=== PATIENT | male | born 1935 | race Caucasian/White ===

== ENCOUNTER 2017-01-22 12:39 | Outpatient (CLI) | payer MEDICARE, OTHER ==
[2014-05-27 14:01] VITALS: BP 108/68
[2017-01-22 12:51] LABS: BASOPHILS % 0.5 (0.0-1.5); EOSINOPHILS % 1.5 % (0.0-6.8); MEAN CORPUSCULAR HEMOGLOBIN 26.6 pg (28.0-34.0); MEAN CORPUSCULAR VOLUME 88.5 fl (80.0-100.0); MONOCYTES % 5.4 % (0.0-11.0); NEUTROPHILS # 2.7 # k/uL (1.4-7.7)
[2017-01-22 13:12] LABS: eGFR (African) > 60; eGFR (Non-African) 52
== END 2017-01-22 12:40 ==
LOC: LAB 12:39
PROVIDERS: ATTEND Internal Medicine Hematology & Oncology
DX: D64.9 Anemia, unspecified (principal)
CPT/HCPCS: 80053; 85025

== ENCOUNTER 2017-01-27 11:54 | Outpatient (CLI) | payer MEDICARE, OTHER ==
[2014-05-27 14:01] VITALS: BP 108/68
[2017-01-27 12:25] LABS: BASOPHILS % 0.7 (0.0-1.5); EOSINOPHILS % 1.2 % (0.0-6.8); MEAN CORPUSCULAR HEMOGLOBIN 26.9 pg (28.0-34.0); MEAN CORPUSCULAR VOLUME 85.8 fl (80.0-100.0); MONOCYTES % 5.3 % (0.0-11.0); NEUTROPHILS # 2.6 # k/uL (1.4-7.7)
[2017-01-27 12:38] LABS: eGFR (African) > 60; eGFR (Non-African) 52
== END 2017-01-27 11:55 ==
LOC: LAB 11:54
PROVIDERS: ATTEND Internal Medicine Hematology & Oncology
DX: K92.2 Gastrointestinal hemorrhage, unspecified (principal); D50.9 Iron deficiency anemia, unspecified
CPT/HCPCS: 80053; 85025

== ENCOUNTER 2017-01-31 13:17 | Outpatient (CLI) | payer MEDICARE, OTHER ==
[2014-05-27 14:01] VITALS: BP 108/68
[2017-01-31 13:28] LABS: BASOPHILS % 1.2 (0.0-1.5); EOSINOPHILS % 0.7 % (0.0-6.8); MEAN CORPUSCULAR HEMOGLOBIN 27.4 pg (28.0-34.0); MEAN CORPUSCULAR VOLUME 85.3 fl (80.0-100.0); MONOCYTES % 6.7 % (0.0-11.0); NEUTROPHILS # 1.9 # k/uL (1.4-7.7)
[2017-01-31 13:45] LABS: eGFR (African) > 60; eGFR (Non-African) 52
== END 2017-01-31 13:18 ==
LOC: LAB 13:17
PROVIDERS: ATTEND Internal Medicine Hematology & Oncology
DX: K92.2 Gastrointestinal hemorrhage, unspecified (principal); D50.9 Iron deficiency anemia, unspecified
CPT/HCPCS: 80053; 85025

== ENCOUNTER 2017-02-04 13:35 | Outpatient (CLI) | payer MEDICARE, OTHER ==
[2014-05-27 14:01] VITALS: BP 108/68
[2017-02-04 13:45] LABS: BASOPHILS % 0.8 (0.0-1.5); EOSINOPHILS % 1.3 % (0.0-6.8); MEAN CORPUSCULAR HEMOGLOBIN 25.8 pg (28.0-34.0); MEAN CORPUSCULAR VOLUME 85.3 fl (80.0-100.0); MONOCYTES % 4.9 % (0.0-11.0)
[2017-02-04 14:01] LABS: eGFR (African) > 60; eGFR (Non-African) 52
== END 2017-02-04 13:36 ==
LOC: LAB 13:35
PROVIDERS: ATTEND Internal Medicine Hematology & Oncology
CPT/HCPCS: 80053; 85025

== ENCOUNTER 2017-02-07 15:37 | Outpatient (CLI) | payer MEDICARE, OTHER ==
[2014-05-27 14:01] VITALS: BP 108/68
[2017-02-07 15:48] LABS: BASOPHILS % 1.2 (0.0-1.5); EOSINOPHILS % 1.6 % (0.0-6.8); MEAN CORPUSCULAR HEMOGLOBIN 26.8 pg (28.0-34.0); MEAN CORPUSCULAR VOLUME 84.4 fl (80.0-100.0); MONOCYTES % 4.8 % (0.0-11.0); NEUTROPHILS # 3.2 # k/uL (1.4-7.7)
[2017-02-07 16:09] LABS: eGFR (African) 58; eGFR (Non-African) 48
== END 2017-02-07 15:40 ==
LOC: LAB 15:37
PROVIDERS: ATTEND Internal Medicine Hematology & Oncology
DX: D50.9 Iron deficiency anemia, unspecified (principal)
CPT/HCPCS: 80053; 85025

== ENCOUNTER 2017-02-18 14:56 | Outpatient (CLI) | payer MEDICARE, OTHER ==
[2014-05-27 14:01] VITALS: BP 108/68
[2017-02-18 15:16] LABS: BASOPHILS % 0.5 (0.0-1.5); EOSINOPHILS % 2.1 % (0.0-6.8); MEAN CORPUSCULAR HEMOGLOBIN 26.3 pg (28.0-34.0); MEAN CORPUSCULAR VOLUME 87.5 fl (80.0-100.0); MONOCYTES % 5.9 % (0.0-11.0)
== END 2017-02-18 14:57 ==
LOC: LAB 14:56
PROVIDERS: ATTEND Internal Medicine Hematology & Oncology
DX: D63.1 Anemia in chronic kidney disease (principal)
CPT/HCPCS: 36415; 85025

== ENCOUNTER 2017-03-04 13:54 | Outpatient (CLI) | payer MEDICARE, OTHER ==
[2014-05-27 14:01] VITALS: BP 108/68
[2017-03-04 14:07] LABS: BASOPHILS % 0.7 (0.0-1.5); EOSINOPHILS % 5.8 % (0.0-6.8); MEAN CORPUSCULAR HEMOGLOBIN 26.5 pg (28.0-34.0); MEAN CORPUSCULAR VOLUME 85.6 fl (80.0-100.0); MONOCYTES % 5.2 % (0.0-11.0); NEUTROPHILS # 2.2 # k/uL (1.4-7.7)
== END 2017-03-04 13:59 | disposition home or self-care (01) ==
LOC: LAB 13:54
PROVIDERS: ATTEND Internal Medicine Hematology & Oncology
DX: D63.1 Anemia in chronic kidney disease (principal)
CPT/HCPCS: 36415; 85025

== ENCOUNTER 2017-03-21 14:06 | Outpatient (CLI) | payer MEDICARE, OTHER ==
[2014-05-27 14:01] VITALS: BP 108/68
[2017-03-21 14:24] LABS: BASOPHILS % 0.7 (0.0-1.5); EOSINOPHILS % 6.3 % (0.0-6.8); MEAN CORPUSCULAR HEMOGLOBIN 27.6 pg (28.0-34.0); MEAN CORPUSCULAR VOLUME 85.1 fl (80.0-100.0); NEUTROPHILS # 2.8 # k/uL (1.4-7.7)
== END 2017-03-21 14:07 ==
LOC: LAB 14:06
PROVIDERS: ATTEND Internal Medicine Hematology & Oncology
DX: D63.1 Anemia in chronic kidney disease (principal)
CPT/HCPCS: 36415; 85025